=== PATIENT | female | born 1995 | race Caucasian/White ===

== ENCOUNTER 2018-04-13 21:00 | Emergency (ER) | payer OTHER ==
--- NOTE | 2018-04-13 21:16 | EDPHY ---
H & P Smoking Status: Never smoked Time Seen by Provider: 04/13/18 21:14 HPI/ROS: CHIEF COMPLAINT: Coccygeal pain HISTORY OF PRESENT ILLNESS: 23-year-old female here after she fell wall hiking. She states she was [place] a [place] and she slipped and started running down a Hill and then lost control and fell and tumbled onto her buttock. There was no loss consciousness. She denies any head injury, chest pain, abdominal pain, arm or leg pain. She does admit to drinking multiple alcoholic beverages this evening. ROS As detailed in HPI (Jaya Benjamin) Physical Exam: General: Alert and oriented. Nontoxic appearing. No acute distress HEENT: Pupils PERRLA. No oral lesions. Head: Atraumatic without Ramsay signs, raccoon eyes or hemotympanum Neck: No midline tenderness Chest: Lung sounds clear no chest wall tenderness Cardiopulmonary: Regular rate and rhythm. No lower extremity edema Skin: [place] warm and dry. No lesions. Muscle skeletal: Moving all 4 extremities. Equal strength in upper extremities and lower extremities. Ambulatory. Tenderness to the lower lumbar spine and sacral area (Jaya Benjamin) Constitutional: Initial Vital Signs Temperature (C) 36.5 C 04/13/18 21:03 Heart Rate 140 H 04/13/18 21:03 Respiratory Rate 24 H 04/13/18 21:03 Blood Pressure 118/80 04/13/18 21:03 O2 Sat (%) 94 04/13/18 21:03 O2 Delivery Mode Room Air Allergies/Adverse Reactions: No Known Allergies Allergy (Unverified 04/13/18 21:02) Home Medications: Medication Instructions Recorded Bcp 04/13/18 Hydrocodone/APAP 5/325 [[place] 1 tab PO Q6 #8 tab 04/13/18 5/325 (*)] Medical Decision Making - Diagnostics Imaging Results: Imaging Impressions Sacrum and Coccyx X-Ray 04/13/18 21:15 Impression: Normal. 2. AP Pelvis History: Pain, fall hiking Findings: The pelvic ring is normally aligned. The SI joints, hip joints and pubic symphysis look normal. No fracture is identified. Overall mineralization is normal. Impression: Negative. 3. Sacrum and Coccyx, 3 views History: Pain post fall hiking Findings: Fecal material obscures portions of the sacrum on the 2 frontal views. On the lateral view the sacrum and coccyx are normally aligned. No fracture is identified. Impression: Negative. Lumbar Spine X-Ray 04/13/18 21:26 Impression: Normal. 2. AP Pelvis History: Pain, fall hiking Findings: The pelvic ring is normally aligned. The SI joints, hip joints and pubic symphysis look normal. No fracture is identified. Overall mineralization is normal. Impression: Negative. 3. Sacrum and Coccyx, 3 views History: Pain post fall hiking Findings: Fecal material obscures portions of the sacrum on the 2 frontal views. On the lateral view the sacrum and coccyx are normally aligned. No fracture is identified. Impression: Negative. Pelvis X-Ray 04/13/18 21:26 Impression: Normal. 2. AP Pelvis History: Pain, fall hiking Findings: The pelvic ring is normally aligned. The SI joints, hip joints and pubic symphysis look normal. No fracture is identified. Overall mineralization is normal. Impression: Negative. 3. Sacrum and Coccyx, 3 views History: Pain post fall hiking Findings: Fecal material obscures portions of the sacrum on the 2 frontal views. On the lateral view the sacrum and coccyx are normally aligned. No fracture is identified. Impression: Negative. ED Course/Re-evaluation: The patient was evaluated and managed by the physician's reading assistant. My cosignature indicates that I reviewed the chart and I agree with the findings and plan of care as documented. I am the secondary supervising physician. ( Sara Piña) 23-year-old female here after the trip and fall while hiking. She is alert and oriented with no signs of altered mentation. She has tenderness over the sacral region. Pelvis is stable on exam an x-ray of the lumbar spine pelvis and sacrum are negative for fracture. She was given pain control and agrees to follow up with [place] doctor [place]. (Jaya Benjamin) Differential Diagnosis: Fracture, dislocation, compartment syndrome, cervical spine injury, pneumothorax (Jaya Benjamin) - Data Points Medications Given: Discontinued Medications Hydrocodone Bitart/Acetaminophen ([place] 5/325) 1 tab PO EDNOW ONE Stop: 04/13/18 21:51 Last Admin: 04/13/18 21:52 Dose: 1 tab Ibuprofen (Motrin) 600 mg PO EDNOW ONE Stop: 04/13/18 21:51 Last Admin: 04/13/18 21:53 Dose: 600 mg Ondansetron HCl (Zofran Odt) 4 mg PO ONCE ONE Stop: 04/13/18 21:51 Last Admin: 04/13/18 21:52 Dose: 4 mg Departure - Departure Disposition: Home, Routine, Self-Care Clinical Impression: Coccyx contusion, Lumbar contusion Condition: Good Instructions: Coccyx Injury (ED) Referrals: DAIANADOCTOR [Other] - As per Instructions Prescriptions: Hydrocodone/APAP 5/325 [[place] 5/325 (*)] 1 tab PO Q6 #8 tab
[2018-04-13] MEDS ORDERED: ONDANSETRON DISINTEGRATING 4 MG TAB PO ONE (21:50)
[2018-04-13] MEDS ORDERED: IBUPROFEN 600 MG TAB PO ONE (21:50)
[2018-04-13] MEDS ORDERED: HYDROCODONE/APAP 5/325 TAB PO ONE (21:50)
[2018-04-13] MEDS ORDERED: ONDANSETRON DISINTEGRATING 4 MG TAB ONE (21:50)
[2018-04-13 22:34] VITALS: BP 102/62
== END 2018-04-13 22:34 | disposition home or self-care (01) ==
DX: S30.0XXA Contusion of lower back and pelvis, initial encounter (principal); W17.81XA Fall down embankment (hill), initial encounter; Y93.01 Activity, walking, marching and hiking; Y92.828 Other wilderness area as the place of occurrence of the external cause